=== PATIENT | female | born 1985 | race Caucasian/White ===

== ENCOUNTER 2017-03-10 23:18 | Emergency (ER) | payer SELFPAY ==
--- NOTE | ~2017-03-10 | ER ---
PATIENT'S NAME: SEVERINO HOLLIS [facility] AGE: 32 Y [address] ROOM: [place] [address] LOCATION: ED ADMIT DATE: 03/10/2017 ER/Outpatient Report DISCHARGE DATE: 03/11/2017 FAMILY PHYSICIAN: Efrain Ramirez MD ATTENDING PHYSICIAN: Savita Shine HISTORY OF PRESENT ILLNESS: A 32-year-old female, who presented today with palpitations that woke her up from sleep about ten minutes ago associated with nausea and shortness of breath, and she had some mild, dull chest pain. She denies any chest pain now, and says that she still feels the palpitations, though. She says it was not beating fast, but she could feel it beating through her chest. So, she was concerned. She went to work after this, and they checked her blood pressure at work and it was systolic 200s. So, she was concerned and decided to come in. No left arm pain. It does not feel like her previous IL. No pressure. No tightness. No arm weakness at this time. No other complaints. PAST MEDICAL HISTORY: Includes 1. 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 2. She has a history of IL with RCA stent. 3. Hypertension, which she is noncompliant with medications, and has not taken them in two months. 4. Anxiety. 5. Depression. 6. Tobacco abuse. SURGICAL HISTORY: 1. x2. 2. Tubal ligation. 3. Lymph node biopsy. SOCIAL HISTORY: She smokes one pack a day, and has done so for at least 20 years. She denies any drugs or alcohol use. No cocaine use. No meth use. MEDICATIONS: Please see med list. She is noncompliant with her hypertension medications, and has not taken them for months because she says she cannot afford them. ALLERGIES: NONE. REVIEW OF SYSTEMS: Reviewed by me and were negative with the exception of those discussed in the PATIENT'S NAME: SEVERINO HOLLIS [facility] AGE: 32 Y [address] ROOM: [place] [address] LOCATION: ED ADMIT DATE: 03/10/2017 ER/Outpatient Report DISCHARGE DATE: 03/11/2017 FAMILY PHYSICIAN: Efrain Ramirez MD ATTENDING PHYSICIAN: Savita Shine. PHYSICAL EXAMINATION: VITAL SIGNS: The patient is 5 feet 11 inches and she weighs 124.2 kilos. Blood pressure was 183/103, heart rate was 85, respiratory rate was 20, temperature was 97.6, and 99% on room air. GCS is 15. GENERAL: The patient is well appearing. She is not in any acute distress, speaking to me in full sentences. CARDIAC: Heart rate is regular rate and rhythm at this time, 85 beats per minute. PULMONARY: Her lungs sounds are clear. ABDOMEN: Soft, nontender, and nondistended. She has no guarding or rebound. EXTREMITIES: She has no pedal edema. Nontender. She walked into the ER without any difficulty. EMERGENCY ROOM COURSE: Given her history, we did a cardiac workup on her. So the first EKG that we did shows sinus rhythm. She has a mildly prolonged QTc at 466, but there is no evidence of ST elevation or ST depression. Slightly flattened T-waves in V2 and V3, but there is no ST-segment elevation or depression. We also checked some lab work. The CBC shows a white count of 11.8, H and H of 14.6/43.2, and platelets are 303 with negative bandemia. Protime is 9.8, INR is 0.93, and PTT is 27. CMS with sodium of 139, potassium of 3.8, chloride of 105, CO2 of 24, anion gap of 13.8, glucose of 113, calcium of 8.4, BUN of 15, creatinine of 0.8, total bilirubin of 0.2, alkaline phosphatase of 75, AST of 21, ALT of 31, GFR of greater than 60, magnesium of 1.8, CPK of 334, CK-MB of 6.1, and her troponin initially the first set was less than 0.04. The patient was continued to be observed. She was given a full dose of aspirin here. She had taken one at home, so we gave her three baby aspirins, as well we also gave her some clonidine for her blood pressure, which worked quite well. Blood pressure at this time is 150s systolic. The patient was observed. She was able to sleep, not complaining of any pain. We repeated the cardiac enzymes. The troponin remained negative in 2 hours. Discussed this with the patient. We will be sending her home. She will also need to continue taking something for her hypertension, I will put her on hydrochlorothiazide at this time and ask her to follow up with her doctor. All questions were answered, and the patient will follow up appropriately. IMPRESSION: 1. Chest pain. 2. Hypertension. PATIENT'S NAME: SEVERINO HOLLIS [facility] AGE: 32 Y [address] ROOM: [place] [address] LOCATION: [facility] ADMIT DATE: 03/10/2017 ER/Outpatient Report DISCHARGE DATE: 03/11/2017 FAMILY PHYSICIAN: Efrain Ramirez MD ATTENDING PHYSICIAN: Savita Shine MD CAW/glorial /[id number] d: 03/11/17 0433 t: 03/12/17 0028, OUTPATIENT REPORT
[~2017-03-10 23:18] MED LIST: ASPIR 8181 MG PO; BACTRIM DS1 TAB PO; CLINDAMYCIN150 MG PO; HUMALOG100 UNIT/1; INSULIN PUMP1 EACH; LIPITOR10 M1 PO; NORCO 5-325 MG1 TAB PO; NOVOLIN-N100 UNIT/M SUB-Q; NOVOLOG100 UNIT/M SUB-Q; PAXIL40 M1 PO; PRINIVIL (ZESTRI5 MG PO; TYLENOL325 MG PO
[2017-03-10 23:51] LABS: BASOPHIL % 0.3 %; EOSINOPHIL # 0.1 K/uL (0.0-0.5); EOSINOPHIL % 0.8 %; HEMATOCRIT 43.2 % (33.0-46.0); HEMOGLOBIN 14.6 g/dL (11.0-15.0); IMMATURE GRANULOCYTE # 0.1 K/uL (0.0-0.3); IMMATURE GRANULOCYTE % 0.5 %; LYMPHOCYTE % 24.9 %; MCH 30.5 pg (27.0-34.0); MCHC 33.8 gm/dL (32.0-36.5); MCV 90.4 fl (83.0-98.0); MONOCYTE # 0.9 K/uL (0.0-1.0); MONOCYTE % 7.3 %; NEUTROPHIL # (ANC) 7.8 K/uL (1.8-7.8); NEUTROPHIL % 66.2 %; NRBC % 0 /100WBC (0-0.00); PLATELET COUNT 303 K/uL (150-450); RBC 4.78 M/uL (3.50-5.50); RDW-CV 12.5 % (11.9-14.6); WBC 11.8 K/uL (4.0-11.0)
[2017-03-11 00:01] LABS: INR - (THERAPEUTIC) 0.93 (0.92-1.07); PROTIME 9.8 SECONDS (9.8-11.4); PTT 27 SECONDS (25-32)
[2017-03-11 00:09] LABS: ALBUMIN 3.7 gm/dL (3.5-5.0); ALK PHOS 75 IU/L (33-138); ALT 31 IU/L (12-78); BLOOD UREA NITROGEN 15 mg/dL (6-24); CALCIUM 8.4 mg/dL (8.5-10.5); CHLORIDE 105 mMol/L (96-110); CO2 24 mMol/L (22-32); CPK 334 IU/L (21-215); CREATININE 0.8 mg/dL (0.5-1.1); ESTIMATED GFR (MDRD EQUATION) > 60; SODIUM 139 mMol/L (135-145); TOTAL BILIRUBIN 0.2 mg/dL (0.0-1.5); TOTAL PROTEIN 7.1 g/dL (6.0-8.4)
[2017-03-11 00:17] LABS: ANION GAP 13.8 (10.0-19.0); AST 21 IU/L (10-40); MAGNESIUM 1.8 mg/dL (1.8-2.6); POTASSIUM 3.8 mMol/L (3.7-5.1)
[2017-03-11 02:21] LABS: CPK 309 IU/L (21-215)
== END 2017-03-11 02:34 | disposition disaster alternative care site (69) ==
LOC: GMED 23:18
PROVIDERS: Emergency Medicine
DX: R07.9 Chest pain, unspecified (principal); I10 Essential (primary) hypertension; F17.210 Nicotine dependence, cigarettes, uncomplicated; E11.9 Type 2 diabetes mellitus without complications; I25.2 Old myocardial infarction; F41.9 Anxiety disorder, unspecified; F32.9 Major depressive disorder, single episode, unspecified; Z98.51 Tubal ligation status; Z98.890 Other specified postprocedural states
CPT/HCPCS: A9270